=== PATIENT | male | born 1995 | race Caucasian/White ===

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

== ENCOUNTER 2017-01-01 21:58 | Emergency (ER) | payer OTHER | END 2017-01-01 22:40 | disposition home or self-care (01) | LOC: ER 21:58 | DX: S80.01XA Contusion of right knee, initial encounter (principal); I10 Essential (primary) hypertension; W22.8XXA Striking against or struck by other objects, initial encounter ==

== ENCOUNTER 2017-01-07 02:24 | Emergency (ER) | payer OTHER | END 2017-01-07 03:48 | disposition home or self-care (01) | LOC: ER 02:24 | DX: S39.91XA Unspecified injury of abdomen, initial encounter (principal); I10 Essential (primary) hypertension; X58.XXXA Exposure to other specified factors, initial encounter ==